=== PATIENT | male | born 1990 | race Caucasian/White ===

== ENCOUNTER 2018-12-01 08:54 | Emergency (ER) | payer OTHER ==
[~2018-12-01] VITALS: Ht 177.8 cm; Wt 104.4 kg
[~2018-12-01 08:54] MED LIST: DENIES; DOCU250C58 PO; HYDR25SU24 PR
[2018-12-01 08:57] VITALS: BP 145/78; PULSE 88; RESP 18; Ht 177.8 cm; Wt 104.4 kg
[2018-12-01] MEDS ORDERED: D-ME473S2 PO (10:30)
[2018-12-01] MEDS ORDERED: BENZ-6 PO (10:30)
--- NOTE | 2018-12-01 17:13 | ERD ---
ER Documentation Chief Complaint Chief Complaint FEVER , CHILLS , BODY ACHE X 2 WEEKS HPI Patient is a 28-year-old male with past medical history of hypertension who presents the ER for concerns of intermittent cough, nasal congestion times 4 days. Patient reports tactile fevers. Patient states that he was taking Liliane- [place] as well as Mucinex with minimal alleviation of symptoms. Patient states he does have a cough which started 2 days ago. Cough is dry in nature. Patient is concerned that he may have pneumonia as mother is currently hospitalized with pneumonia. Patient states he had intermittent body aches for the last 2 weeks. Patient denies any chest pain, shortness of breath, nausea, vomiting, abdominal pain or diarrhea. Patient denies any neck pain or neck stiffness. ROS All systems reviewed and are negative except as per history of present illness. Medications Home Meds Active Scripts Dextromethorphan Hb-Promethazine Hcl* (Promethazine DM* Syrup) 473 Ml Syrup, 5 ML PO Q6 PRN for COUGH, #4 OZ Prov:HAIDER WHYTE PA-C 12/01/18 Benzonatate* (Tessalon Perle*) 100 Mg Capsule, 100 MG PO Q8H PRN for COUGH, #20 CAP Prov:HAIDER WHYTE PA-C 12/01/18 Docusate Sodium* (Colace*) 250 Mg Capsule, 250 MG PO BID, #60 CAP Prov:MERLINE VELASCO NP 04/23/15 Hydrocortisone Acetate* (Anusol-HC*) 25 Mg/Supp.rect Supp.rect, 1 SUPP [place] HS, #20 SUPP.RECT Prov:MERLINE VELASCO NP 04/23/15 Reported Medications [Denies] No Conflict Check 05/26/10 Allergies Allergies: Coded Allergies: No Known Drug Allergies (Verified Allergy, Mild, 04/23/15) PMhx/Soc History of Surgery: No Anesthesia Reaction: No Hx Neurological Disorder: No Hx Respiratory Disorders: No Hx Cardiac Disorders: Yes (HTN. ) Hx Psychiatric Problems: No Hx Miscellaneous Medical Probl: No Hx Alcohol Use: Yes Hx Substance Use: No Hx Tobacco Use: No Smoking Status: Never smoker FmHx Family History: No diabetes Physical Exam Vitals Vital Signs Date Temp Pulse Resp B/P (MAP) Pulse Ox O2 O2 Flow FiO2 Time Delivery Rate 12/01/18 98.7 88 18 145/78 99 08:57 (100) Physical Exam GENERAL: Well-developed, well-nourished male. Appears in no acute distress. HEAD: Normocephalic, atraumatic. No deformities or ecchymosis. EYE: Pupils equal, round, and reactive to light. EOMs intact. No conjunctival erythema. No eye discharge. ENT: External ear without any masses or tenderness. Auditory canals clear bilaterally. TM visualized bilaterally, non-erythematous, non-bulging. Nasal mucosa pink with no discharge. Oropharynx is pink without any tonsillar erythema or exudates. No uvula deviation. No kissing tonsils. NECK: Supple. No meningismus. Normal ROM of the neck. LUNG: Clear to auscultation bilaterally. No rhonchi, wheezing, rales or coarse breath sounds. HEART: Regular rate and rhythm. No murmurs, rubs or gallops. EXTREMITES: Equal pulses bilaterally. No peripheral clubbing, cyanosis or edema. No unilateral leg swelling. NEUROLOGIC: Alert and oriented to person, place and time. Moving all four extremities. 5/5 strength in all extremities. Normal speech. Steady gait. SKIN: Normal color. Warm and dry. No rashes or lesions. Procedures/MDM ED COURSE: The patient was stable throughout ED course. I kept the patient and/or family informed of laboratory and diagnostic imaging results throughout the ED course. DIAGNOSTIC IMAGING: Read by radiologist. Patient: AMANDA DUKES : 1990 Age: 28 Sex: M MR #: [id number] DOS: 12/01/18 0939 Ordering MD: HAIDER WHYTE PA-C Location: [facility] Room/Bed: PROCEDURE: XR Chest. CLINICAL INDICATION: Cough, fever TECHNIQUE: Single frontal view of the chest was obtained COMPARISON: None FINDINGS: The heart and mediastinum are within normal limits. The lungs are clear. There is no pleural effusion or pneumothorax. RPTAT: AA IMPRESSION: No acute disease. .Zay Wilkerson MD, MD Date Time Electronically viewed and signed by .Zay Wilkerson MD, on 12/01/2018 10:15 .S/ CC: HAIDER WHYTE PA-C [phone] MEDICAL DECISION MAKING: Patient is a 28-year-old male with past medical history of hypertension who presents to the ER for concerns of cough, nasal congestion times 4 days. Vital signs were reviewed. Patient was afebrile. Patient was not hypoxic. ENT exam was normal. Lung exam was normal. Chest x-ray was unremarkable. Given these findings, the patient's presentation is most consistent with viral URI. I have a much lower clinical concern for bacterial infections including pneumonia, meningitis, sinusitis, otitis externa, acute otitis media, strep pharyngitis, epiglottitis or peritonsillar abscess. PRESCRIPTIONS: Promethazine cough syrup, Tessalon Perles DISCHARGE: At this time, patient is stable for discharge and outpatient management. Supportive therapies such as OTC throat lozenges, salt water gurgles, popsicles and jello discussed. I have instructed the patient to follow-up with his/her primary care physician in 1-2 days. I have instructed the patient to promptly return to the ER for any new or worsening symptoms including increased pain, swelling, fever, nausea, vomiting, weakness or difficulty breathing. The patient and/or family expressed understanding of and agreement with this plan. All questions were answered. Home care instructions were provided. Disclaimer: Inadvertent spelling and grammatical errors are likely due to EHR/dictation software use and do not reflect on the overall quality of patient care. Also, please note that the electronic time recorded on this note does not necessarily reflect the actual time of the patient encounter. Departure Diagnosis: Primary Impression: URI (upper respiratory infection) URI type: unspecified URI Qualified Codes: J06.9 - Acute upper respiratory infection, unspecified Condition: Stable Patient Instructions: Preventing Common Respiratory Infections Referrals: COMMUNITY CLINICS YOU HAVE RECEIVED A MEDICAL SCREENING EXAM AND THE RESULTS INDICATE THAT YOU DO NOT HAVE A CONDITION THAT REQUIRES URGENT TREATMENT IN THE EMERGENCY DEPARTMENT. FURTHER EVALUATION AND TREATMENT OF YOUR CONDITION CAN WAIT UNTIL YOU ARE SEEN IN YOUR DOCTORS OFFICE WITHIN THE NEXT 1-2 DAYS. IT IS YOUR RESPONSIBILITY TO MAKE AN APPOINTMENT FOR FOLOW-UP CARE. IF YOU HAVE A PRIMARY DOCTOR --you should call your primary doctor and schedule an appointment IF YOU DO NOT HAVE A PRIMARY DOCTOR YOU CAN CALL OUR PHYSICIAN REFERRAL HOTLINE AT IF YOU CAN NOT AFFORD TO SEE A PHYSICIAN YOU CAN CHOSE FROM THE FOLLOWING [facility] [address] [facility] [address] [facility] [address] [facility] [address] [facility] [address] [facility]. [facility] [address] [facility]. [facility] YOU HAVE RECEIVED A MEDICAL SCREENING EXAM AND THE RESULTS INDICATE THAT YOU DO NOT HAVE A CONDITION THAT REQUIRES URGENT TREATMENT IN THE EMERGENCY DEPARTMENT. FURTHER EVALUATION AND TREATMENT OF YOUR CONDITION CAN WAIT UNTIL YOU ARE SEEN IN YOUR DOCTORS OFFICE WITHIN THE NEXT 1-2 DAYS. IT IS YOUR RESPONSIBILITY TO MAKE AN APPOINTMENT FOR FOLOW-UP CARE. IF YOU HAVE A PRIMARY DOCTOR --you should call your primary doctor and schedule and appointment IF YOU DO NOT HAVE A PRIMARY DOCTOR YOU CAN CALL OUR PHYSICIAN REFERRAL HOTLINE AT . IF YOU CAN NOT AFFORD TO SEE A PHYSICIAN YOU CAN CHOSE FROM THE FOLLOWING [facility] INSTITUTIONS: [facility] [address] [place] [address] [facility] [address] [place] [address] [facility] [address] [place] [address] Additional Instructions: Call your primary care doctor TOMORROW for an appointment during the next 1-2 days.See the doctor sooner or return here if your condition worsens before your appointment time. HAIDER WHYTE PA-C Dec 01, 2018 17:13
== END 2018-12-01 10:35 | disposition home or self-care (01) ==
LOC: FTE 08:54
DX: J06.9 Acute upper respiratory infection, unspecified (principal); I10 Essential (primary) hypertension
CPT/HCPCS: 71045; Z7502